=== PATIENT | female | born 1990 | race American Indian/Alaskan Native ===

== ENCOUNTER 2017-04-23 15:43 | Emergency (ER) | payer MEDICAID, OTHER ==
--- NOTE | 2017-04-23 17:36 | Emergency Department Report ---
Chief Complaint: Eye Problems Stated Complaint: KHALIL/VISUAL PROBLEMS Time Seen by Provider: 04/23/17 17:31 - HPI History of Present Illness: Patient reports that she went to [facility] because she's been seeing a specialist and they have told her that she is at risk for getting glaucoma based on the vessels in her eye. She says she went today because she was having left-sided migraine and they checked the pressure and they told her that the pressure is 2 above the normal level which is 20 in her left eye. She was sent by the specialist emergency room to treat migraine headache and lack of sleep. She has been having constant migraine which she has been diagnosed with on and off and she is not on any medication. It is 7 out of 10 and located to the left side of her head. - ROS Review of Systems: All systems are negative unless stated in HPI above - Exam Vital Signs: Vital Signs 04/23/17 17:17 Temperature 98.9 F Pulse Rate 78 Respiratory 16 Rate Blood Pressure 115/79 O2 Sat by Pulse 100 Oximetry Physical Exam: Gen.: This is a 27-year-old female well-nourished well-developed in no acute distress Head: Normocephalic, atraumatic. Neurological: Speech is clear and fluent, no facial droop pain, GCS is 15. Gait is normal. Negative Romberg. No motor or sensory deficit. No focal neurological deficit MSE screening note: Focused history and physical exam performed. Due to findings the following was ordered: ED Medical Decision Making - Medical Decision Making MDM: Patient screened by provider in triage area. Appropriate protocol initiated and patient to be seen in main ED by ED Disposition for MSE Condition: Stable
[2017-04-23 18:41] LABS: Basophils % (Auto) 0.5 % (0.0-1.8); Eosinophils % (Auto) 0.3 % (0.0-4.3); Hematocrit 36.1 % (30.3-42.9); Hemoglobin 12.5 gm/dl (10.1-14.3); Mean Corpuscular HGB Conc 35 % (30-34); Mean Corpuscular Hemoglobin 32 pg (28-32); Mean Corpuscular Volume 94 fl (79-97); Platelet Count 217 K/mm3 (140-440); Red Blood Count 3.85 M/mm3 (3.65-5.03); Red Cell Distribution Width 12.8 % (13.2-15.2)
[2017-04-23 18:50] LABS: Anion Gap 17 mmol/L; BUN/Creatinine Ratio 15; Blood Urea Nitrogen 9 mg/dL (7-17); Calcium 9.6 mg/dL (8.4-10.2); Carbon Dioxide 26 mmol/L (22-30); Chloride 98.6 mmol/L (98-107); Glucose 107 mg/dL (65-100); Potassium 3.9 mmol/L (3.6-5.0); Sodium 138 mmol/L (137-145)
[2017-04-23 19:57] LABS: Bilirubin,Urine NEG (Negative); Blood,Urine NEG (Negative); Ketones,Urine TR mg/dL (Negative); Leukocyte Esterase,Urine NEG (Negative); Nitrite,Urine NEG (Negative); Protein,Urine <15 mg/dL mg/dL (Negative); Urobilinogen,Urine < 2.0 mg/dL (<2.0)
[2017-04-24] MEDS: BENADRYL IV ONE (01:40)
[2017-04-24] MEDS: REGLAN IV ONE (01:42)
[2017-04-24] MEDS: TORADOL IV ONE (01:45)
--- NOTE | 2017-04-24 02:07 | Cat Scan Report ---
FINAL REPORT EXAM: CT HEAD/BRAIN WO CON HISTORY: left sided headache, hx of migraines TECHNIQUE: Routine axial imaging was obtained of the brain without IV contrast. FINDINGS: There are no attenuation abnormalities. The ventricular system is appropriate in size and is symmetric. The visualized sinuses are clear. The mastoid air cells are well pneumatized. IMPRESSION: Normal exam.
--- NOTE | 2017-04-24 02:14 | Emergency Department Report ---
ED Headache HPI - General Chief Complaint: Eye Problems Stated Complaint: KHALIL/VISUAL PROBLEMS Time Seen by Provider: 04/23/17 17:30 Source: patient Exam Limitations: no limitations - History of Present Illness Initial Comments: 27 year old female with a past history of migraines and chronic bilateral elevated eye pressure presents to the hospital with complaints of left-sided headache 4 days. Patient has a history of chronic migraines for "years". Last CT scan was about 1-2 years ago. Patient does not see a neurologist. Patient is experiencing intermittent left sided dull headache that is temporarily relieved with Advil and tramadol. Patient has a history of chronic bilateral eye pressure elevation in sees Dr. Awan double end tenon operator. Patient has been on Combigan eyedrops for each eye since the summertime. Patient was told she is at risk for glaucoma and she decided to be proactive and was seen by the double end tenon operator today to rule out acute glaucoma of her left eye giving pain for the past 4 days. No complaints of blurred vision, photophobia, nausea, or vomiting. Patient complains of sleeping a lot and decreased appetite. Patient states that her left eye pressure was 2 points above her normal level. She provided the number to contact her double end tenon operator. I discussed case with Dr. Awan. He states that there is no acute emergency involving the eyes and he completed the eye exam. He is more concerned of management of her migraines lack of follow-up with a neurologist. Allergies/Adverse Reactions: Allergies No Known Allergies Allergy (Unverified 04/23/17 17:22) Home Medications: Ambulatory Orders Butalb/Acetamin/Caff 50-325-40 [Fioricet] 1 tab PO Q6HR PRN #20 tab 04/24/17 ED Review of Systems ROS: Stated complaint: KHALIL/VISUAL PROBLEMS Other details as noted in HPI Comment: All other systems reviewed and negative Other: Constitutional: No fevers chills. weight loss, decreased appetite Eyes: No eye pain visual changes ENT: No ear pain or throat pain Neck: Denies pain Respiratory: Denies cough wheezing shortness of breath Cardiovascular: Denies chest pain, palpitations, syncope GI: Denies abdominal pain, nausea, vomiting, diarrhea : Denies dysuria Musculoskeletal: Denies back pain Skin: Denies rash, lesions, erythema Neurological: as per hpi Psychiatric: Denies suicidal ideation, hallucinations ED Past Medical Hx - Past Medical History Previous Medical History?: Yes Additional medical history: high pressure in L. eye - Surgical History Past Surgical History?: No - Social History Smoking Status: Never Smoker - Medications Home Medications: Home Medications Medication Instructions Recorded Confirmed Last Taken Type Butalb/Acetamin/Caff 50-325-40 1 tab PO Q6HR PRN #20 tab 04/24/17 Unknown Rx [Fioricet] ED Physical Exam - General Limitations: No Limitations - Other Other exam information: General: No limitations, patient is alert in no acute distress Head exam: Atraumatic, normocephalic Eyes exam: Normal appearance, pupils equal reactive to light, extraocular movements intact. Mild pain with light exposure to the left eye. Pupils 4 mm reactive, visual acuity 20/20 both eyes, 20/20 right eye, 20/25 left eye ENT: Moist mucous membrane, normal oropharynx Neck exam: Normal inspection, full range of motion, no meningismus nontender Respiratory exam: Clear to auscultation bilateral, no wheezes, rales, crackles Cardiovascular: Normal rate and rhythm, normal heart sounds Abdomen: Soft, nondistended, and nontender, with normal bowel sounds, no rebound, or guarding Extremity: Full range of motion normal inspection no deformity Back: Normal Inspection, full range of motion, no tenderness Neurologic: Alert, oriented x3, cranial nerves intact, no motor or sensory deficit Psychiatric: normal affect, normal mood Skin: Warm, dry, intact ED Course Vital Signs 04/23/17 04/24/17 04/24/17 17:17 00:28 01:45 Temperature 98.9 F Pulse Rate 78 Respiratory 16 18 18 Rate Blood Pressure 115/79 O2 Sat by Pulse 100 Oximetry - Reevaluation(s) Reevaluation #1: 04/24/17 02:25 Patient treated with Reglan, Benadryl, and Toradol for migraines as well as Imitrex ED Medical Decision Making - Lab Data Result diagrams: 04/23/17 17:46 04/23/17 17:46 Lab Results 04/23/17 04/23/17 04/23/17 Range/Units 17:46 17:46 17:46 WBC 7.0 (4.5-11.0) K/mm3 RBC 3.85 (3.65-5.03) M/mm3 Hgb 12.5 (10.1-14.3) gm/dl Hct 36.1 (30.3-42.9) % MCV 94 (79-97) fl MCH 32 (28-32) pg MCHC 35 H (30-34) % RDW 12.8 L (13.2-15.2) % Plt Count 217 (140-440) K/mm3 Lymph % (Auto) 29.8 (13.4-35.0) % [place] % (Auto) 8.5 H (0.0-7.3) % Eos % (Auto) 0.3 (0.0-4.3) % Baso % (Auto) 0.5 (0.0-1.8) % Lymph # 2.1 (1.2-5.4) K/mm3 [place] # 0.6 (0.0-0.8) K/mm3 Eos # 0.0 (0.0-0.4) K/mm3 Baso # 0.0 (0.0-0.1) K/mm3 Seg Neutrophils % 60.9 (40.0-70.0) % Seg Neutrophils # 4.3 (1.8-7.7) K/mm3 Sodium 138 (137-145) mmol/L Potassium 3.9 (3.6-5.0) mmol/L Chloride 98.6 (98-107) mmol/L Carbon Dioxide 26 (22-30) mmol/L Anion Gap 17 mmol/L BUN 9 (7-17) mg/dL Creatinine 0.6 L (0.7-1.2) mg/dL Estimated GFR > 60 ml/min BUN/Creatinine Ratio 15 % Glucose 107 H (65-100) mg/dL Calcium 9.6 (8.4-10.2) mg/dL HCG, Qual Negative (Negative) Urine Color (Yellow) Urine Turbidity (Clear) Urine pH (5.0-7.0) Ur Specific [place] (1.003-1.030) Urine Protein (Negative) mg/dL Urine Glucose (UA) (Negative) mg/dL Urine Ketones (Negative) mg/dL Urine Blood (Negative) Urine Nitrite (Negative) Urine Bilirubin (Negative) Urine Urobilinogen (<2.0) mg/dL Ur Leukocyte Esterase (Negative) Urine WBC (Auto) (0.0-6.0) /HPF Urine RBC (Auto) (0.0-6.0) /HPF U Epithel Cells (Auto) (0-13.0) /HPF 04/23/17 Range/Units Unknown WBC (4.5-11.0) K/mm3 RBC (3.65-5.03) M/mm3 Hgb (10.1-14.3) gm/dl Hct (30.3-42.9) % MCV (79-97) fl MCH (28-32) pg MCHC (30-34) % RDW (13.2-15.2) % Plt Count (140-440) K/mm3 Lymph % (Auto) (13.4-35.0) % [place] % (Auto) (0.0-7.3) % Eos % (Auto) (0.0-4.3) % Baso % (Auto) (0.0-1.8) % Lymph # (1.2-5.4) K/mm3 [place] # (0.0-0.8) K/mm3 Eos # (0.0-0.4) K/mm3 Baso # (0.0-0.1) K/mm3 Seg Neutrophils % (40.0-70.0) % Seg Neutrophils # (1.8-7.7) K/mm3 Sodium (137-145) mmol/L Potassium (3.6-5.0) mmol/L Chloride (98-107) mmol/L Carbon Dioxide (22-30) mmol/L Anion Gap mmol/L BUN (7-17) mg/dL Creatinine (0.7-1.2) mg/dL Estimated GFR ml/min BUN/Creatinine Ratio % Glucose (65-100) mg/dL Calcium (8.4-10.2) mg/dL HCG, Qual (Negative) Urine Color Yellow (Yellow) Urine Turbidity Clear (Clear) Urine pH 6.0 (5.0-7.0) Ur Specific [place] 1.004 (1.003-1.030) Urine Protein <15 mg/dl (Negative) mg/dL Urine Glucose (UA) Neg (Negative) mg/dL Urine Ketones Tr (Negative) mg/dL Urine Blood Neg (Negative) Urine Nitrite Neg (Negative) Urine Bilirubin Neg (Negative) Urine Urobilinogen < 2.0 (<2.0) mg/dL Ur Leukocyte Esterase Neg (Negative) Urine WBC (Auto) 2.0 (0.0-6.0) /HPF Urine RBC (Auto) 1.0 (0.0-6.0) /HPF U Epithel Cells (Auto) 2.0 (0-13.0) /HPF - Radiology Data Radiology results: report reviewed (CT head: No acute findings) - Medical Decision Making Plan to Discharge patient home. Positive symptomatic relief after Benadryl, Toradol, Reglan, and Imitrex. CT unremarkable. Headache similar to previous migraines. Patient was cleared by ophthalmology prior to arrival and is retaken eyedrops for mild increase in eye pressures - Differential Diagnosis migraine, glaucoma, mass, tension khalil, cluster khalil Critical Care Time: No Critical care attestation.: If time is entered above; I have spent that time in minutes in the direct care of this critically ill patient, excluding procedure time. ED Disposition Clinical Impression: Migraine, Disease of both eyes characterized by increased eye pressure Disposition: TO HOME OR SELFCARE Is pt being admited?: No Does the pt Need Aspirin: No Condition: Stable Instructions: Migraine Headache (ED) Additional Instructions: Take the medication as prescribed. Follow up with either neurologist provided. Return if symptoms worsen as indicated by your discharge instructions. Continue eyedrops as instructed by your double end tenon operator Prescriptions: Butalb/Acetamin/Caff 50-325-40 [Fioricet] 1 tab PO Q6HR PRN #20 tab PRN Reason: Headache Referrals: PK SOSA MD [Staff Physician] - 3-5 Days VEDA WILCOX MD [Staff Physician] - 3-5 Days Time of Disposition: 03:40
[2017-04-24] MEDS: IMITREX SUB-Q ONE (02:16)
[2017-04-24 04:00] VITALS: BP 105/64
== END 2017-04-24 04:00 | disposition home or self-care (01) ==
LOC: ED 15:43
DX: G43.909 Migraine, unspecified, not intractable, without status migrainosus (principal); H40.053 Ocular hypertension, bilateral
CPT/HCPCS: 36415; 70450; 80048; 81001; 84703; 85025; 96372; 96374; 96375; 99284; J1200; J1885; J2765; J3030